=== PATIENT | male | born 2000 | race African-American/Black ===

== ENCOUNTER 2020-06-22 07:48 | Emergency (ER) | payer MEDICAID ==
--- NOTE | 2020-06-22 08:27 | EDM.PDOC ---
ED HPI GENERAL MEDICAL PROBLEM - General Chief Complaint: Lower Extremity Injury/Pain Stated Complaint: R ANKLE PAIN Time Seen by Provider: 06/22/20 08:10 Source of Information: Reports: Patient, Old Records, RN History Limitations: Reports: No Limitations - History of Present Illness INITIAL COMMENTS - FREE TEXT/NARRATIVE: 19 yo male awoke today with R ant/lateral ankle and foot pain. He denies injury. He took nothing for the pain. Has a hx of fracture of that ankle a couple yrs ago. Had no pain yesterday. Onset: Today Onset Date: 06/22/20 Duration: Minutes: Location: Reports: Lower Extremity, Right Quality: Reports: Sharp (with weight bearing) Severity: Moderate Improves with: Reports: Rest (no pain at rest) Worsens with: Reports: Other (weight bearing) Context: Reports: Other (See HPI) Associated Symptoms: Reports: No Other Symptoms. Denies: Fever/Chills, Rash Treatments TODDLER NANNY: Reports: Other (see below) (none) Right Ankle Pain Score (Numeric/FACES): 8 - Related Data Allergies Allergy/AdvReac Type Severity Reaction Status Date / Time No Known Allergies Allergy Verified 06/22/20 08:03 Home Meds: Home Meds NK [No Known Home Meds] 06/22/20 [History] Past Medical History Musculoskeletal History: Reports: Fracture Other Musculoskeletal History: r wrist and thumb - Past Surgical History GI Surgical History: Reports: Appendectomy Social & Family History - Tobacco Use Tobacco Use Status *Q: Current Every Day Tobacco User Years of Tobacco use: 2 Packs/Tins Daily: 0.2 Used Tobacco, but Quit: No Second Hand Smoke Exposure: No - Caffeine Use Caffeine Use: Reports: Soda - Recreational Drug Use Recreational Drug Use: No Review of Systems - Review of Systems Review Of Systems: See Below Constitutional: Reports: No Symptoms Musculoskeletal: Reports: Joint Pain (R lateral ankle). Denies: Joint Swelling Skin: Reports: No Symptoms. Denies: Erythema, Wound Neurological: Reports: No Symptoms ED EXAM, GENERAL - Physical Exam Exam: See Below Exam Limited By: No Limitations General Appearance: Alert, WD/WN, No Apparent Distress Extremities: Normal Inspection, No Pedal Edema, Other (completely normal looking ankle, minimally tender with palpation. ). No: Pedal Edema, Increased Warmth, Mottled, Redness Neurological: Alert, Oriented, CN II-XII Intact, Normal Cognition, No Motor/Sensory Deficits Skin Exam: Warm, Dry, Intact, Normal Color, No Rash Course - Vital Signs Last Recorded V/S: Last Vital Signs Temp 36.4 C 06/22/20 08:11 Pulse 63 06/22/20 08:11 Resp 16 06/22/20 08:11 BP 124/39 L 06/22/20 08:11 Pulse Ox 96 06/22/20 08:11 Departure - Departure Time of Disposition: 08:25 Disposition: Home, Self-Care 01 Condition: Good Clinical Impression: Ankle pain, right Qualifiers: Chronicity: unspecified Qualified Code(s): M25.571 - Pain in right ankle and joints of right foot - Discharge Information *PRESCRIPTION DRUG MONITORING PROGRAM REVIEWED*: No *COPY OF PRESCRIPTION DRUG MONITORING REPORT IN PATIENT NORMA: No Referrals: PCP,None [Primary Care Provider] - Additional Instructions: Crutch walking and no weight bearing initially. Use DORIS wrap for support. Take Aleve or generic version 2 every 8 hrs with food for pain relief and inflammation. If not better by the end of this week see your doctor for recheck, he may then give you a referral to a fuel cell technician. Sepsis Event Note (ED) - Evaluation Sepsis Screening Result: No Definite Risk - Focused Exam Vital Signs: Vital Signs Temp Pulse Resp BP Pulse Ox 06/22/20 08:11 36.4 C 63 16 124/39 L 96 06/22/20 08:02 36.4 C 63 16 124/39 L 96
== END 2020-06-22 08:36 | disposition home or self-care (01) ==
LOC: JP.ED 07:48
DX: M25.571 Pain in right ankle and joints of right foot (principal); Z72.0 Tobacco use
CPT/HCPCS: 99282; 99283

== ENCOUNTER 2020-07-11 06:55 | Emergency (ER) | payer MEDICAID ==
--- NOTE | 2020-07-11 07:33 | EDM.PDOC ---
ED HPI GENERAL MEDICAL PROBLEM - General Chief Complaint: Cardiovascular Problem Stated Complaint: HEART RACING Time Seen by Provider: 07/11/20 07:36 Source of Information: Reports: Patient, Old Records, RN History Limitations: Reports: No Limitations - History of Present Illness INITIAL COMMENTS - FREE TEXT/NARRATIVE: 19 yo male with no local provider presents with intermittent rapid HR since yesterday. Feels well currently. Does admit to marijuana use and he last used yesterday. Lives with his mother. No other complaints currently. Onset: Sudden Onset Date: 07/10/20 Duration: Day(s): (1), Intermittent, Waxing/Waning Location: Reports: Chest Quality: Reports: Other (no pain) Severity: Moderate Improves with: Reports: Other (unknown) Worsens with: Reports: Other (unknown) Context: Reports: Other (See HPI) Associated Symptoms: Reports: No Other Symptoms Treatments HOSPITAL COOK: Reports: Other (see below) (none) - Related Data Allergies Allergy/AdvReac Type Severity Reaction Status Date / Time No Known Allergies Allergy Verified 07/11/20 07:14 Home Meds: Home Meds NK [No Known Home Meds] 06/22/20 [History] Past Medical History Musculoskeletal History: Reports: Fracture Other Musculoskeletal History: r wrist and thumb - Past Surgical History GI Surgical History: Reports: Appendectomy Social & Family History - Tobacco Use Tobacco Use Status *Q: Current Every Day Tobacco User Years of Tobacco use: 2 Packs/Tins Daily: 0.2 - Caffeine Use Caffeine Use: Reports: Soda - Recreational Drug Use Recreational Drug Use: Yes Drug Use in Last 12 Months: Yes Recreational Drug Type: Reports: Marijuana/Hashish Recreational Drug Use Frequency: Weekly ED ROS GENERAL - Review of Systems Review Of Systems: See Below Constitutional: Reports: No Symptoms HEENT: Reports: No Symptoms Respiratory: Reports: No Symptoms Cardiovascular: Reports: Palpitations GI/Abdominal: Reports: No Symptoms : Reports: No Symptoms Musculoskeletal: Reports: No Symptoms Skin: Reports: No Symptoms Neurological: Reports: No Symptoms ED EXAM, GENERAL - Physical Exam Exam: See Below Exam Limited By: No Limitations General Appearance: Alert, WD/WN, No Apparent Distress Eye Exam: Bilateral Eye: Normal Inspection Ears: Normal External Exam, Normal Canal, Hearing Grossly Normal Ear Exam: Bilateral Ear: Auricle Normal, Canal Normal Nose: Normal Inspection, No Blood Throat/Mouth: Normal Inspection, Normal Lips, Normal Oropharynx, Normal Voice, No Airway Compromise Head: Atraumatic, Normocephalic Neck: Normal Inspection Respiratory/Chest: No Respiratory Distress, Lungs Clear, Normal Breath Sounds, No Accessory Muscle Use Cardiovascular: Regular Rate, Rhythm, No Edema Extremities: Normal Inspection, No Pedal Edema Neurological: Alert, Oriented, CN II-XII Intact, Normal Cognition, No Leonila r/Sensory Deficits Psychiatric: Normal Affect, Normal Mood Skin Exam: Warm, Dry, Intact, Normal Color, No Rash Course - Vital Signs Last Recorded V/S: Last Vital Signs Temp 36.8 C 07/11/20 07:27 Pulse 77 07/11/20 07:27 Resp 17 07/11/20 07:27 BP 144/75 H 07/11/20 07:27 Pulse Ox 100 07/11/20 07:27 - Orders/Labs/Meds Orders: Active Orders 24 hr Category Date Time Status Cardiac Monitoring [RC] .As Directed Care 07/11/20 07:05 Active Labs: Laboratory Tests 07/11/20 Range/Units 07:40 Urine Opiates Screen Negative (NEGATIVE) Ur Oxycodone Screen Negative (NEGATIVE) Urine Methadone Screen Negative (NEGATIVE) Ur Propoxyphene Screen Negative (NEGATIVE) Ur Barbiturates Screen Negative (NEGATIVE) Ur Tricyclics Screen Negative (NEGATIVE) Ur Phencyclidine Scrn Negative (NEGATIVE) Ur Amphetamine Screen Negative (NEGATIVE) U Methamphetamines Scrn Negative (NEGATIVE) Urine MDMA Screen Negative (NEGATIVE) U Benzodiazepines Scrn Negative (NEGATIVE) U Cocaine Metab Screen Presumptive positive H (NEGATIVE) U Marijuana (THC) Screen Presumptive positive H (NEGATIVE) Departure - Departure Time of Disposition: 08:03 Disposition: Home, Self-Care 01 Condition: Good Clinical Impression: Illicit drug use Referrals: PCP,None [Primary Care Provider] - Forms: ED Department Discharge Additional Instructions: Avoidance of street drug use is your safest way to avoid unwanted medication side effects. Sepsis Event Note (ED) - Evaluation Sepsis Screening Result: No Definite Risk - Focused Exam Vital Signs: Vital Signs Temp Pulse Resp BP Pulse Ox 07/11/20 07:27 36.8 C 77 17 144/75 H 100 07/11/20 07:14 36.8 C 77 17 144/75 H 100 - My Orders Last 24 Hours: My Active Orders 07/11/20 07:05 Cardiac Monitoring [RC] .As Directed - Assessment/Plan Last 24 Hours: My Active Orders 07/11/20 07:05 Cardiac Monitoring [RC] .As Directed
== END 2020-07-11 08:21 | disposition home or self-care (01) ==
LOC: JP.ED 06:55
DX: F12.90 Cannabis use, unspecified, uncomplicated (principal); F14.90 Cocaine use, unspecified, uncomplicated; R00.2 Palpitations; Z72.0 Tobacco use
CPT/HCPCS: 80305-QW; 99282; 99284

== ENCOUNTER 2021-07-13 03:28 | Emergency (ER) | payer MEDICAID ==
[2021-07-13] MEDS ORDERED: Amoxicillin/Clavulanate K 875-125 MG Tab PO ONE (03:58)
[2021-07-13] MEDS ORDERED: Ketorolac 30 MG/ML SDV IM ONE (03:58)
== END 2021-07-13 04:39 | disposition home or self-care (01) ==
LOC: JP.ED 03:28
DX: H66.91 Otitis media, unspecified, right ear (principal); Z72.0 Tobacco use
CPT/HCPCS: 96372; 99282; A9270-GY; J1885